=== PATIENT | female | born 1960 | race Caucasian/White ===

== ENCOUNTER 2017-03-19 21:03 | Emergency (ER) | payer BC ==
[~2017-03-19] VITALS: Ht 160 cm; Wt 63.5 kg
[2017-03-19 21:12] VITALS: BP 132/67
[2017-03-19] MEDS ORDERED: HYDROCODONE/APAP 5/325MG 1 EACH TABLET PO ONE (22:00)
[2017-03-19] MEDS ORDERED: ONDANSETRON 4 MG TAB.RAPDIS SL ONE (22:00)
== END 2017-03-19 23:19 | disposition home or self-care (01) ==
LOC: ER 21:05
DX: S52.591A Other fractures of lower end of right radius, initial encounter for closed fracture (principal); S52.611A Displaced fracture of right ulna styloid process, initial encounter for closed fracture; W19.XXXA Unspecified fall, initial encounter; Y93.41 Activity, dancing; Y92.89 Other specified places as the place of occurrence of the external cause; Y99.8 Other external cause status; Z88.0 Allergy status to penicillin
CPT/HCPCS: 29125; 73080; 73090; 73130; 99284; A4606; Z7610